=== PATIENT | male | born 1985 | race Caucasian/White ===

== ENCOUNTER 2019-09-01 18:05 | Outpatient (RCR) | payer OTHER ==
[2019-09-01 18:40] LABS: SEMEN VOLUME 1.5 ML (1.5-5.0)
== END 2019-11-13 | disposition home or self-care (01) ==
LOC: LAB 18:05
PROVIDERS: ATTEND Family Medicine
DX: N46.9 Male infertility, unspecified (principal)
CPT/HCPCS: 89320

== ENCOUNTER → 2020-09-03 | Outpatient (CLI) | payer OTHER ==
--- NOTE | 2020-09-03 11:08 | Diagnostic Imaging Report ---
INDICATION: Left foot pain COMPARISON: None. FINDINGS: 3 views of the left foot demonstrate no acute fracture or dislocation. There are no focal osseous lesions. Prominent bridging talonavicular osteophyte is noted medially. There is no soft tissue swelling. Joint spaces are well maintained. No radiopaque foreign bodies are seen. IMPRESSION: 1. No acute fractures or dislocations of the left foot. 2. Prominent bridging talonavicular osteophyte. Dictated by: Dictated on workstation # [id number]
== END ==
LOC: RAD 09:35
PROVIDERS: ATTEND Family Medicine
DX: M79.672 Pain in left foot (principal)
CPT/HCPCS: 73630

== ENCOUNTER 2020-09-19 05:32 | Outpatient (RCR) | payer OTHER ==
[~2020-09-19] VITALS: Ht 175.3 cm; Wt 100.0 kg
== END 2020-09-19 11:21 | disposition home or self-care (01) ==
LOC: PREOP 05:32
PROVIDERS: ATTEND Podiatrist Foot & Ankle Surgery
DX: Z01.812 Encounter for preprocedural laboratory examination (principal); S86.112A Strain of other muscle(s) and tendon(s) of posterior muscle group at lower leg level, left leg, initial encounter; Z20.822 Contact with and (suspected) exposure to COVID-19
CPT/HCPCS: 87635

== ENCOUNTER 2020-09-21 06:00 | Day surgery (SDC) | payer OTHER ==
[2020-09-21] VITALS (12 sets, daily range): BP systolic 102–132; BP diastolic 57–78
[~2020-09-21] VITALS: Ht 175.3 cm; Wt 100.0 kg
[2020-09-21] MEDS ORDERED: CLINDAMYCIN 600 MG/50 ML IVPB 50 ML IV ONE (06:15)
[2020-09-21] MEDS: LACTATED RINGERS 1,000 ML IV PRN ×2 (06:30→07:46)
[2020-09-21] MEDS ORDERED: MIDAZOLAM 2 MG/2 ML (VERSED) VIAL ONE (06:32)
[2020-09-21] MEDS ORDERED: ONDANSETRON 4 MG/2 ML (SDV) Z0FRAN ONE (06:32)
[2020-09-21] MEDS ORDERED: proPOfol 200 MG/20 ML (DIPRIVAN) VIAL IV ONE (06:32)
[2020-09-21] MEDS ORDERED: LIDOCAINE PF 2% 5 ML (XYLOCAINE) VIAL ONE (06:32)
[2020-09-21] MEDS ORDERED: fentaNYL INJECTION 100 MCG/2 ML AMP ONE (06:32)
[2020-09-21] MEDS ORDERED: SEVOFLURANE (ULTANE) 15 ML INHAL SOLN ONE ×4 (06:33→08:59)
[2020-09-21] MEDS ORDERED: ACHD5005 PO ×2 (07:03→09:24)
[2020-09-21] MEDS ORDERED: BUPIVACAINE 0.5% 30 ML (SENSORCAINE) VIAL ONE (07:14)
--- NOTE | 2020-09-21 07:34 | Progress Note-Pre Operative ---
Pre-Operative Progress Note H&P Reviewed The H&P was reviewed, patient examined and no changes noted. Date Seen by Provider: Sep 21, 2020 Time Seen by Provider: 07:33 Date H&P Reviewed: Sep 21, 2020 Time H&P Reviewed: 07:33 Pre-Operative Diagnosis: PT Tendonitis, Symptomatic OTE, left PRINCESS,BARNEY Q DPM Sep 21, 2020 07:34
--- NOTE | 2020-09-21 09:21 | Progress Note-Post Operative ---
Post-Operative Progess Note Surgeon (s)/Vice President For Instruction (s) Surgeon BARNEY SÁNCHEZ DPM Vice President For Instruction: none Pre-Operative Diagnosis PT Tendonitis, Symptomatic OTE, left Post-Operative Diagnosis Same Procedure & Operative Findings Date of Procedure 09/21/20 Procedure Performed/Findings Kidner Procedure, left Anesthesia Type General Estimated Blood Loss Estimated blood loss (mL): Minimal Specimens/Packing Specimens Removed Os Tibiale Externum, left BARNEY SÁNCHEZ DPM Sep 21, 2020 09:21
--- NOTE | 2020-09-21 09:22 | Anesthesia-General Post-Op ---
General Patient Condition Mental Status/LOC: Same as Preop Cardiovascular: Satisfactory Nausea/Vomiting: Absent Respiratory: Satisfactory Pain: Controlled Complications: Absent Post Op Complications Complications None Follow Up Care/Instructions Patient Instructions None needed. Anesthesia/Patient Condition Patient Condition Patient is doing well, no complaints, stable vital signs, no apparent adverse anesthesia problems. No complications reported per nursing. JUANJO DE LA CRUZ CRNA Sep 21, 2020 09:22
[2020-09-21] MEDS ORDERED: CLIN150C2 PO (09:24)
[2020-09-21] MEDS ORDERED: morphine INJ 10 MG/ML 1ML (SYR OR VIAL) IVP ONE (09:30)
[2020-09-21] MEDS ORDERED: fentaNYL INJECTION 100 MCG/2 ML AMP IVP ONE (09:30)
[2020-09-21] MEDS ORDERED: ONDANSETRON 4 MG/2 ML (SDV) Z0FRAN IVP PRN (09:30)
[2020-09-21] MEDS ORDERED: HYDROcodone/APAP 5 MG/325 MG (LORTAB) TAB PO PRN (09:30)
[2020-09-21] MEDS ORDERED: LACTATED RINGERS 1,000 ML IV SCH (09:30)
--- NOTE | 2020-09-21 10:26 | Diagnostic Imaging Report ---
INDICATION: Postoperative evaluation COMPARISON: 09/03/2020 TECHNIQUE: 2 radiographs of the left foot dated 09/21/2020. FINDINGS: Interval surgical excision of previously noted os tibiale externum and removal of associated osteophyte formation. Single anchor is noted at this location at this time. Postsurgical soft tissue swelling and soft tissue gas is present at this location. No suspicious radiopaque foreign body. No acute fracture or dislocation. IMPRESSION: Interval postsurgical changes with removal of previously noted os tibiale externum without evidence of acute osseous abnormality or suspicious radiopaque foreign body. Dictated by: Dictated on workstation # [id number]
--- NOTE | 2020-09-21 11:21 | Physical Therapy Ortho Eval ---
PT Orthopedic Evaluation Type of Surgery Tendonitis L Prior Level of Function Current Living Status: Spouse Locomotion (Upon Admit): Independent Established Durable Medical Eq: Front Wheeled Walker, Crutches Subjective Subjective Reports he has a walker and may get crutches. Reports his willl be available to help as needed. Entry Into Home: Stairs Without Railing Other Obstacles: 1 small step followed by a platform step Motor Control Motor Control: Motor Control WNL ROM ROM: WFL Strength Strength: WFL Transfer SCALE: Activities may be completed with or without assistive devices. 3-Womhcqjhsi-pyfjpqk completes the activity by him/herself with no assistance from a helper. 5-Set-up or Clean-up Assistance-helper sets up or cleans up; patient completes activity. [place] assists only prior to or following the activity. 4-Supervision or Touching Assistance-helper provides verbal cues and/or touching/steadying and/or contact guard assistance as patient completes activity. Assistance may be provided throughout the activity or intermittently. 3-Partial/Moderate Assistance-helper does LESS THAN HALF the effort. [place] lifts, holds or supports trunk or limbs, but provides less than half the effort. 2-Substantial/Maximal Assistance-helper does MORE THAN HALF the effort. [place] lifts or holds trunk or limbs and provides more than half the effort. 2-Zwboymgkl-ltnwra does ALL the effort. Patient does none of the effort to complete the activity. Or, the assistance of 2 or more helpers is required for the patient to complete the activity. If activity was not attempted, code reason: 7-Patient Refused. 9-Not Applicable-not attempted and the patient did not perform the activity before the current illness, exacerbation or injury. 10-Not Attempted due to Environmental Limitations-(lack of equipment, weather restraints, etc.). 88-Not Attempted due to Medical Conditions or Safety Concerns. Transfers (B, C, W/C) (QC): 4 (6 post visit) Pt able to perform transfers safely at end of treatment visit and maintain NWB status. Gait Gait Assistive Device: FWW, Crutches Right Lower Extremity: Right Weight Bearing Status RLE: Full Weight Bearing Left Lower Extremity: Left Weight Bearing Status LLE: Non Weight Bearing Educated in walker vs crutches for use. Gait (QC): 4 (post visit, pt was a 6 (mod indep)) Distance (QC): 4=754-74 ft Summary/Comments Pt able to safely hop with a walker and crutches adequate distances for discharge home. Maintains NWB left. Training on a curb step and pt able to safely perform. present and agrees they feel comfortable on steps Treatment Rendered Treatment: Gait Train, Step Train Assessment/Goals Goal Time Frame: 1 Visit Safe Ambulation: Yes Plan Treatment Plan: Discharge Time Time In: 1035 Time Out: 1055 Total Billed Treatment Time: 20 Billed Treatment Time visit EVM 20 KLAUS BENNETT PT Sep 21, 2020 11:21
--- NOTE | 2020-09-21 14:19 | OPERATIVE REPORT ---
DATE OF SERVICE: 09/21/2020 SURGEON: Abbie Sánchez DPM. 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 PROCEDURE: Kidner procedure, left foot. WOUND CLASS: Clean. ANESTHESIA: General. HEMOSTASIS: Pneumatic thigh tourniquet at 300 mmHg. INDICATIONS: This 35-year-old male presents with a painful left arch and posterior tibial tendon. Conservative therapy is met with unsatisfactory results and the patient is agreeable to surgical intervention after risks and complications were discussed at length. No guarantees were extended to the patient and he is willing to proceed. DESCRIPTION OF PROCEDURE: The patient was brought back to the operating table, placed in secure supine position. Appropriate timeout was performed to identify laterality as well as procedure. Pneumatic thigh tourniquet was placed on left lower extremity over several layers of padding. The left foot and ankle were prepped in normal sterile manner. The left foot was then elevated, allowed to exsanguinate after which the tourniquet was inflated to 300 mmHg. Attention was then directed to the medial aspect of the left foot where a 6 cm longitudinal linear incision was created along the distal course of posterior tibial tendon just inferior and anterior to the medial malleolus extending over the navicular tuberosity area. The incision was deepened in the same plane with great care to identify and retract all vital neurovascular structures. Only necessary blood vessels were cauterized as encountered. The incision was deepened down to the retinaculum, where a longitudinal incision was performed. Next, the tendon sheath associated with the superior aspect of the posterior tibial tendon was identified and incised longitudinally approximately 2 cm above the navicular tuberosity extending all the way down to the navicular overlying the medial aspect of the tuberosity. Once this was done, a hypertrophic medial eminence to the navicular tuberosity was identified. Subperiosteal dissection was carried out. This navicular tuberosity prominence was reduced with an osteotome and mallet and further contoured and smoothed utilizing a power bur. Next, attention was then directed to the distal course of posterior tibial tendon where some yellow discoloration was identified with some fraying of the distal tendons to the most lateral aspect or underlying aspect of the tendon. A 15 blade was utilized to incise the distal tendon distally where a large os tibiale externum bone was identified within the substance of the posterior tibial tendon. This was circumferentially dissected from the tendon and sent for gross and microscopic evaluation. The rest of the tendon appeared to be in appropriate position and without any further pathology. The wound was flushed with copious amounts of normal saline. An anchor was then placed to the navicular tuberosity in preparation for reattachment of the posterior tibial tendon. A GII anchor was utilized after a docking pilot hole was created to the plantar medial aspect of the navicular tuberosity. The GII anchor was seated within the navicular. Excellent range of motion was appreciated now at the talonavicular and naviculocuneiform joints. The 0 Ethibond supplied with the GII anchor was utilized to secure the posterior tibial tendon to the medial aspect of the navicular. Excellent apposition was appreciated at this time. The remainder of the frayed posterior tibial tendon distal aspect was reattached utilizing 3-0 Vicryl. The tendon sheath was reapproximated with 3-0 Vicryl. The subcutaneous tissue was reapproximated with 4-0 Vicryl and skin closure was performed with 4-0 Prolene in a horizontal mattress type stitch. It should be noted that preoperatively, there was an injection of 0.5% Marcaine injected to the operative site along the medial aspect of the posterior tibial tendon and navicular utilizing 7 mL. Postoperative injection consisted of additional 10 mL of 0.5% Marcaine, once again injected along the course of the incision, which was the posterior tibial tendon and navicular area. Postoperative dressing consisted of Betadine soaked Adaptic, sterile 4 x 4, sterile Kerlix all secured with Coban wrap. The patient also had a posterior splint applied, which was fiberglass secured with two Clint wraps. The patient tolerated the anesthesia and procedure well and was transported from the operating room to the recovery area with vital signs stable and vascular status intact to all digits of the left foot. The patient is to follow up in my office in 10 days' period of time. He is to remain nonweightbearing with crutches during that period and for several more weeks after. The patient was given prescription for clindamycin as well as hydrocodone. Job ID: [id number] DocumentID: [id number] Dictated Date: 09/21/2020 09:31:59 Carpet Renovator Date: 09/21/2020 14:19:05 Dictated By: ABBIE SÁNCHEZ DPM
== END 2020-09-21 11:45 | disposition home or self-care (01) ==
LOC: SDC 06:00
PROVIDERS: ATTEND Podiatrist Foot & Ankle Surgery
DX: M76.822 Posterior tibial tendinitis, left leg (principal); K21.9 Gastro-esophageal reflux disease without esophagitis; Z88.0 Allergy status to penicillin; Z79.899 Other long term (current) drug therapy
CPT/HCPCS: 28238; 73620; 87081; 97162; C1713

== ENCOUNTER → 2020-10-01 | Outpatient (CLI) | payer OTHER ==
[~2020-10-01] MED LIST: ACHD5005 PO; CLIN150C2 PO
--- NOTE | 2020-10-01 15:36 | Diagnostic Imaging Report ---
PROCEDURE: US left lower extremity venous. TECHNIQUE: Multiple real-time grayscale images were obtained over the left lower extremity in various projections. Additional duplex Doppler and color Doppler images were also obtained. INDICATION: Left leg pain and edema. FINDINGS: There is no evidence of left lower extremity DVT. Left lower extremity deep venous system shows normal compressibility with normal response to augmentation and Valsalva. No fluid collection or mass is detected. IMPRESSION: No evidence of left lower extremity DVT. Dictated by: Dictated on workstation # [id number]
== END ==
LOC: RAD 15:00
PROVIDERS: ATTEND Podiatrist Foot & Ankle Surgery
DX: M79.605 Pain in left leg (principal); M79.89 Other specified soft tissue disorders